=== PATIENT | male | born 1995 | race Caucasian/White ===

== ENCOUNTER → 2017-01-01 | Outpatient (REF) | payer BC, OTHER | END | disposition home or self-care (01) | LOC: M LAB REF 16:16 | PROVIDERS: ATTEND Physician Assistant | DX: Z11.9 Encounter for screening for infectious and parasitic diseases, unspecified (principal) ==

== ENCOUNTER 2017-01-06 09:23 | Emergency (ER) | payer BC, OTHER ==
--- NOTE | 2017-01-06 10:06 | EDDOCDS ---
Nurse's Notes [facility] Name: Vaughn Blackburn Age: 21 yrs Sex: Male : 1995 Arrival Date: 01/06/2017 Time: 09:23 Bed I3 / M3 Private MD: Raheem Diagnosis: Sialoadenitis Presentation: 01/06 09:27 Presenting complaint: Patient states: pain to right lower jaw radiating to right jaw jjr began yesterday with swelling noted today. Adult Sepsis Screening: The patient does not have new or worsening altered mentation. Patient's respiratory rate is less than 22. Systolic blood pressure is greater than 100. Patient has a qSOFA score of 0- Negative Sepsis Screen. Suicide/Homicide risk assessment- the patient denies having any suicidal and/or homicidal ideations and does not present with any other emotional, behavioral or mental health complaints. Status: Patient is not a commissioner of relocation services or dependent. Transition of care: patient was not received from another setting of care. 09:27 Acuity: JUANITA Level 4 jjr 09:27 Method Of Arrival: Walkin/Carried/Asstd jjr Triage Assessment: 09:29 General: Appears in no apparent distress. Pain: Location: right ear and right jaw. HIV jjr screening NA for this visit Offered previously. EENT: Reports pain in right ear and right jaw. Historical: - Allergies: Amoxicillin (Hives); Hep C vaccine (Rash); - Home Meds: 1. Tylenol 325 mg Oral tab 2 tabs prn (Last dose: 01/06/2017 09:00) - PMHx: none; - PSHx: Knee surgery- Right; - Social history: Smoking status: Patient states was never smoker of tobacco. No barriers to communication noted, The patient speaks fluent Hong Konger. - Family history: Not pertinent. - : The pt / caregiver states he / she is not on anticoagulants. Home medication list is obtained from the patient. - Exposure Risk Screening:: None identified. Screenin:04 Screening information is obtained from the patient. Fall risk: No risks identified. srm Assistance ADL's: requires no assistance with activities of daily living. Abuse/DV Screen: The patient / caregiver reports he/she is: not in a situation that causes fear, pain or injury. Nutritional screening: No deficits noted. Advance Directives: There is. Advance Directives: There is no active DNR order. home support is adequate. Assessment: 10:04 General: Appears in no apparent distress, Behavior is appropriate for age, cooperative. srm Respiratory: No deficits noted. GI: No deficits noted. Derm: right sided facial swelling. denies tooth pain. Vital Signs: 09:24 BP 157 / 77; Pulse 96; Resp 18; Temp 96.5(T); Pulse Ox 96% on R/A; Weight 119.29 kg; dem1 Height 6 ft. 4 in. (193.04 cm); Pain 6/10; 09:24 Body Mass Index 32.01 (119.29 kg, 193.04 cm) [facility] Vitals: 09:24 Log In Time: January 06, 2017 at 09:22. [facility] ED Course: 09:24 Patient visited by Shilo Phillip. dem1 09:24 Raheem is Private Physician. dem1 09:24 Patient moved to Waiting dem1 09:25 Patient visited by Shilo Phillip. dem1 09:25 Patient moved to Pre RCE dem1 09:27 Triage Initiated jjr 09:29 Patient moved to MTA Wait jjr 09:45 Iban Flowers PA is PHCP. btw 09:45 Maite Burrows MD is Attending Physician. btw 09:45 Patient moved to I3 / M3 btw 09:47 Patient visited by Iban Flowers PA. btw 09:54 Raheem is Referral Physician. btw 10:04 The patient / caregiver is instructed regarding the plan of care and ED course. srm Accompanied by Family Member, Patient has correct armband on for positive identification. 10:04 No IV's were initiated during this patient's visit. No procedures done that require srm assistance. Order Results: There are currently no results for this order. Outcome: 09:55 Discharge ordered by Provider. btw 10:04 Discharge Assessment: Patient awake, alert and oriented x 3. No cognitive and/or srm functional deficits noted. Patient verbalized understanding of disposition instructions. patient administered narcotics - no. The following High Risk Discharge criteria are identified: None. Discharged to home ambulatory, with significant other. Condition: good Condition: stable. Discharge instructions given to patient, Instructed on discharge instructions, follow up and referral plans. medication usage, Demonstrated understanding of instructions, medications, Pt was receptive of discharge instructions/ teaching. Prescriptions given X 1. No special radiology studies were completed. Property sent home with patient. 10:05 Patient left the ED. srm Signatures: Hali Abel, RN RN Leann Cavazos RN RN jjr Wolfenden, Brandon, PA PA btw Mack, Demeishia dem1 MTDD
--- NOTE | 2017-01-06 10:06 | EDDOCDS ---
Physician Documentation [facility] Name: Vaughn Blackburn Age: 21 yrs Sex: Male : 1995 Arrival Date: 01/06/2017 Time: 09:23 Bed I3 / M3 Private MD: Raheem Disposition: 01/06/17 09:55 Discharged to Home/Self Care. Impression: Sialoadenitis. - Condition is Stable. - Discharge Instructions: Sialadenitis. - Prescriptions for Clindamycin HCl 300 mg Oral Capsule - take 1 capsule by ORAL route every 6 hours; 40 capsule. - Medication Reconciliation, Local Pharmacy Hours form. - Follow up: Raheem; When: Call to arrange an appointment; Reason: Further diagnostic work-up, Recheck today's complaints, Continuance of care. - Problem is new. - Symptoms are unchanged. Historical: - Allergies: Amoxicillin (Hives); Hep C vaccine (Rash); - Home Meds: 1. Tylenol 325 mg Oral tab 2 tabs prn (Last dose: 01/06/2017 09:00) - PMHx: none; - PSHx: Knee surgery- Right; - Social history: Smoking status: Patient states was never smoker of tobacco. No barriers to communication noted, The patient speaks fluent Chinese. - Family history: Not pertinent. - : The pt / caregiver states he / she is not on anticoagulants. Home medication list is obtained from the patient. - Exposure Risk Screening:: None identified. Vital Signs: 01/06 09:24 BP 157 / 77; Pulse 96; Resp 18; Temp 96.5(T); Pulse Ox 96% on R/A; Weight 119.29 kg / dem1 262.99 lbs; Height 6 ft. 4 in. (193.04 cm); Pain 6/10; 09:24 Body Mass Index 32.01 (119.29 kg, 193.04 cm) dem1 MDM: 10:05 Financial registration complete. mm15 Signatures: Hali Abel RN Leann Brown RN RN jjr Wolfenden, Brandon, PA PA btw McGrath, Marlynn mm15 MTDD
--- NOTE | 2017-01-08 11:06 | EDDOCDS ---
Nurse's Notes [facility] Name: Vaughn Blackburn Age: 21 yrs Sex: Male : 1995 Arrival Date: 01/06/2017 Time: 09:23 Bed I3 / M3 Private MD: Raheem Diagnosis: Sialoadenitis Presentation: 01/06 09:27 Presenting complaint: Patient states: pain to right lower jaw radiating to right jaw jjr began yesterday with swelling noted today. Adult Sepsis Screening: The patient does not have new or worsening altered mentation. Patient's respiratory rate is less than 22. Systolic blood pressure is greater than 100. Patient has a qSOFA score of 0- Negative Sepsis Screen. Suicide/Homicide risk assessment- the patient denies having any suicidal and/or homicidal ideations and does not present with any other emotional, behavioral or mental health complaints. Status: Patient is not a clinical services director or dependent. Transition of care: patient was not received from another setting of care. 09:27 Acuity: JUANITA Level 4 jjr 09:27 Method Of Arrival: Walkin/Carried/Asstd jjr Triage Assessment: 09:29 General: Appears in no apparent distress. Pain: Location: right ear and right jaw. HIV jjr screening NA for this visit Offered previously. EENT: Reports pain in right ear and right jaw. Historical: - Allergies: Amoxicillin (Hives); Hep C vaccine (Rash); - Home Meds: 1. Tylenol 325 mg Oral tab 2 tabs prn (Last dose: 01/06/2017 09:00) - PMHx: none; - PSHx: Knee surgery- Right; - Social history: Smoking status: Patient states was never smoker of tobacco. No barriers to communication noted, The patient speaks fluent Congolese. - Family history: Not pertinent. - : The pt / caregiver states he / she is not on anticoagulants. Home medication list is obtained from the patient. - Exposure Risk Screening:: None identified. Screenin:04 Screening information is obtained from the patient. Fall risk: No risks identified. srm Assistance ADL's: requires no assistance with activities of daily living. Abuse/DV Screen: The patient / caregiver reports he/she is: not in a situation that causes fear, pain or injury. Nutritional screening: No deficits noted. Advance Directives: There is. Advance Directives: There is no active DNR order. home support is adequate. Assessment: 10:04 General: Appears in no apparent distress, Behavior is appropriate for age, cooperative. srm Respiratory: No deficits noted. GI: No deficits noted. Derm: right sided facial swelling. denies tooth pain. Vital Signs: 09:24 BP 157 / 77; Pulse 96; Resp 18; Temp 96.5(T); Pulse Ox 96% on R/A; Weight 119.29 kg; dem1 Height 6 ft. 4 in. (193.04 cm); Pain 6/10; 09:24 Body Mass Index 32.01 (119.29 kg, 193.04 cm) [facility] Vitals: 09:24 Log In Time: January 06, 2017 at 09:22. [facility] ED Course: 09:24 Patient visited by Shilo Phillip. dem1 09:24 Raheem is Private Physician. dem1 09:24 Patient moved to Waiting dem1 09:25 Patient visited by Shilo Phillip. dem1 09:25 Patient moved to Pre RCE dem1 09:27 Triage Initiated jjr 09:29 Patient moved to MTA Wait jjr 09:45 Iban Flowers PA is PHCP. btw 09:45 Maite Burrows MD is Attending Physician. btw 09:45 Patient moved to I3 / M3 btw 09:47 Patient visited by Iban Flowers PA. btw 09:54 Raheem is Referral Physician. btw 10:04 The patient / caregiver is instructed regarding the plan of care and ED course. srm Accompanied by Family Member, Patient has correct armband on for positive identification. 10:04 No IV's were initiated during this patient's visit. No procedures done that require srm assistance. 10:08 [facility] Payment Agreement was scanned into [employer] and attached to record. mm15 14:19 T-Sheet-- Draft Copy was scanned into [employer] and attached to record. gb Order Results: There are currently no results for this order. Outcome: 09:55 Discharge ordered by Provider. btw 10:04 Discharge Assessment: Patient awake, alert and oriented x 3. No cognitive and/or srm functional deficits noted. Patient verbalized understanding of disposition instructions. patient administered narcotics - no. The following High Risk Discharge criteria are identified: None. Discharged to home ambulatory, with significant other. Condition: good Condition: stable. Discharge instructions given to patient, Instructed on discharge instructions, follow up and referral plans. medication usage, Demonstrated understanding of instructions, medications, Pt was receptive of discharge instructions/ teaching. Prescriptions given X 1. No special radiology studies were completed. Property sent home with patient. 10:05 Patient left the ED. srm Signatures: Hali Abel, RN RN Dominique Abel, Manish Reg Leann Shipman RN RN Iban Maria PA PA btw Mack, Demeishia dem1 Vidya Damian mm15 Chart Complete MTDAnanda
--- NOTE | 2017-01-08 11:06 | EDDOCDS ---
Physician Documentation [facility] Name: Vaughn Blackburn Age: 21 yrs Sex: Male : 1995 Arrival Date: 01/06/2017 Time: 09:23 Bed I3 / M3 Private MD: Raheem Disposition: 01/06/17 09:55 Discharged to Home/Self Care. Impression: Sialoadenitis. - Condition is Stable. - Discharge Instructions: Sialadenitis. - Prescriptions for Clindamycin HCl 300 mg Oral Capsule - take 1 capsule by ORAL route every 6 hours; 40 capsule. - Medication Reconciliation, Local Pharmacy Hours form. - Follow up: Raheem; When: Call to arrange an appointment; Reason: Further diagnostic work-up, Recheck today's complaints, Continuance of care. - Problem is new. - Symptoms are unchanged. Historical: - Allergies: Amoxicillin (Hives); Hep C vaccine (Rash); - Home Meds: 1. Tylenol 325 mg Oral tab 2 tabs prn (Last dose: 01/06/2017 09:00) - PMHx: none; - PSHx: Knee surgery- Right; - Social history: Smoking status: Patient states was never smoker of tobacco. No barriers to communication noted, The patient speaks fluent Telugu. - Family history: Not pertinent. - : The pt / caregiver states he / she is not on anticoagulants. Home medication list is obtained from the patient. - Exposure Risk Screening:: None identified. Vital Signs: 01/06 09:24 BP 157 / 77; Pulse 96; Resp 18; Temp 96.5(T); Pulse Ox 96% on R/A; Weight 119.29 kg / dem1 262.99 lbs; Height 6 ft. 4 in. (193.04 cm); Pain 6/10; 09:24 Body Mass Index 32.01 (119.29 kg, 193.04 cm) dem1 MDM: 10:05 Financial registration complete. mm15 10:08 [facility] Payment Agreement was scanned into [employer] and attached to record. mm15 14:19 T-Sheet-- Draft Copy was scanned into [employer] and attached to record. gb Signatures: Hali Abel RN RN srm Barnhardt, Gloria, Reg Reg gb Bobby, Leann, RN Iban Fontenot PA PA btw McGrath, Marlynn mm15 The chart was reviewed and I authenticate all verbal orders and agree with the evaluation and treatment provided.Attachments: 10:08 [facility] Payment Agreement mm15 14:19 T-Sheet-- Draft Copy gb Chart Complete MTDD
--- NOTE | 2017-01-08 11:06 | EDDOCDS ---
Physician Documentation [facility] Name: Vaughn Blackburn Age: 21 yrs Sex: Male : 1995 Arrival Date: 01/06/2017 Time: 09:23 Bed I3 / M3 Private MD: Raheem Disposition: 01/06/17 09:55 Discharged to Home/Self Care. Impression: Sialoadenitis. - Condition is Stable. - Discharge Instructions: Sialadenitis. - Prescriptions for Clindamycin HCl 300 mg Oral Capsule - take 1 capsule by ORAL route every 6 hours; 40 capsule. - Medication Reconciliation, Local Pharmacy Hours form. - Follow up: Raheem; When: Call to arrange an appointment; Reason: Further diagnostic work-up, Recheck today's complaints, Continuance of care. - Problem is new. - Symptoms are unchanged. Historical: - Allergies: Amoxicillin (Hives); Hep C vaccine (Rash); - Home Meds: 1. Tylenol 325 mg Oral tab 2 tabs prn (Last dose: 01/06/2017 09:00) - PMHx: none; - PSHx: Knee surgery- Right; - Social history: Smoking status: Patient states was never smoker of tobacco. No barriers to communication noted, The patient speaks fluent Lithuanian. - Family history: Not pertinent. - : The pt / caregiver states he / she is not on anticoagulants. Home medication list is obtained from the patient. - Exposure Risk Screening:: None identified. Vital Signs: 01/06 09:24 BP 157 / 77; Pulse 96; Resp 18; Temp 96.5(T); Pulse Ox 96% on R/A; Weight 119.29 kg / dem1 262.99 lbs; Height 6 ft. 4 in. (193.04 cm); Pain 6/10; 09:24 Body Mass Index 32.01 (119.29 kg, 193.04 cm) dem1 MDM: 10:05 Financial registration complete. mm15 10:08 [facility] Payment Agreement was scanned into [employer] and attached to record. mm15 14:19 T-Sheet-- Draft Copy was scanned into [employer] and attached to record. gb Signatures: Hali Abel RN RN srm Barnhardt, Gloria, Reg Reg gb Bobby, Leann, RN Iban Fontenot PA PA btw McGrath, Marlynn mm15 The chart was reviewed and I authenticate all verbal orders and agree with the evaluation and treatment provided.Attachments: 10:08 [facility] Payment Agreement mm15 14:19 T-Sheet-- Draft Copy gb Chart Complete MTDD
== END 2017-01-06 10:05 | disposition home or self-care (01) ==
LOC: M ED 09:23
DX: K11.21 Acute sialoadenitis (principal); Z88.1 Allergy status to other antibiotic agents; Z88.7 Allergy status to serum and vaccine

== ENCOUNTER → 2017-11-24 | Outpatient (CLI) | payer BC, OTHER | LOC: M RAD 11:08 | DX: M79.671 Pain in right foot (principal); R60.0 Localized edema; X58.XXXA Exposure to other specified factors, initial encounter; Y92.9 Unspecified place or not applicable; Y93.9 Activity, unspecified | CPT/HCPCS: 73660 ==

== ENCOUNTER → 2018-01-03 | Outpatient (REF) | payer BC, OTHER | LOC: M LAB REF 11:49 | DX: J11.1 Influenza due to unidentified influenza virus with other respiratory manifestations (principal) | CPT/HCPCS: 87633 ==

== ENCOUNTER 2024-08-28 01:19 | Emergency (ER) | payer BC, OTHER, SELFPAY ==
[~2024-08-28] VITALS: Ht 190.5 cm; Wt 139.2 kg
[2024-08-28 04:28] VITALS: TEMP 98.6
[2024-08-28] MEDS: diphenhydrAMINE 50MG CAP PO ONE (06:30)
[2024-08-28] MEDS: predniSONE 20 MG TAB PO ONE (06:30)
[2024-08-28] MEDS ORDERED: PEPC1TAB5 PO (07:53)
[2024-08-28] MEDS ORDERED: BENA25CA4 PO (07:53)
[2024-08-28] MEDS ORDERED: MEDR4PAK PO (07:53)
[2024-08-28] MEDS: FAMOTIDINE 20 MG TAB PO ONE (08:04)
[2024-08-28 08:15] VITALS: BP 128/60; O2SAT 97
== END 2024-08-28 08:25 | disposition home or self-care (01) ==
LOC: M ED 01:19
DX: L50.9 Urticaria, unspecified (principal); B34.9 Viral infection, unspecified; F10.10 Alcohol abuse, uncomplicated; Z88.1 Allergy status to other antibiotic agents; Z79.899 Other long term (current) drug therapy
CPT/HCPCS: 87486; 87581; 87633; 87798; 99284; J7512